=== PATIENT | male | born 1995 | race Caucasian/White ===

== ENCOUNTER 2017-01-15 17:29 | Emergency (ER) | payer BC ==
[~2017-01-15] VITALS: Ht 185.4 cm; Wt 68.2 kg
[2017-01-15 17:33] VITALS: TEMP 98.1
[2017-01-15 18:58] VITALS: BP 121/83; PULSE 76
== END 2017-01-15 19:07 | disposition home or self-care (01) ==
LOC: COL.ER 17:29
DX: S09.90XA Unspecified injury of head, initial encounter (principal); S01.91XA Laceration without foreign body of unspecified part of head, initial encounter; Z23 Encounter for immunization; X50.0XXA Overexertion from strenuous movement or load, initial encounter; Y93.02 Activity, running